=== PATIENT | female | born 1955 | race Caucasian/White ===

== ENCOUNTER 2018-04-17 13:39 | Emergency (ER) | END 2018-04-17 16:45 | disposition home or self-care (01) ==

== ENCOUNTER 2018-07-02 16:27 | Emergency (ER) | END 2018-07-02 18:33 | disposition home or self-care (01) ==

== ENCOUNTER 2018-10-08 14:46 | Emergency (ER) | payer OTHER ==
[~2018-10-08] VITALS: Wt 71.0 kg
[~2018-10-08 14:46] MED LIST: ACET325T33 PO; ACET500C5 PO; AMOX500C2 PO; CEPH-443 PO; IBUP-1561 PO; MED4DP PO; PROM6.2515 PO; SULF1TAB31 PO
[2018-10-08 14:51] VITALS: BP 149/71; PULSE 78; RESP 18
[2018-10-08] MEDS ORDERED: CEPH-443 PO (15:59)
[2018-10-08] MEDS ORDERED: ACET500C5 PO (15:59)
[2018-10-08] MEDS ORDERED: ACETAMINOPHEN 325 MG TAB PO ONE (16:00)
--- NOTE | 2018-10-08 16:04 | ERD ---
ER Documentation Chief Complaint Chief Complaint UPPER LEFT DENTAL PAIN X 8 DAYS HPI 63-year-old female presents with left lower molar dental pain for last 8 days. She denies any fevers, difficulty swallowing, difficult to breathing. Patient states that she is able to see a dentist. She has an additional complaint of some irritation of the right nipple after taking a shower and rubbing it earlier this week. She had a recent normal mammogram by report. ROS All systems reviewed and are negative except as per history of present illness. Medications Home Meds Active Scripts Acetaminophen* (Tylophen*) 500 Mg Capsule, 1 CAP PO Q6H PRN for PAIN AND OR ELEVATED TEMP, #20 CAP Prov:KANCHAN TSANG MD 10/08/18 Cephalexin* (Keflex*) 500 Mg Capsule, 500 MG PO QID for 10 Days, CAP Prov:KANCHAN TSANG MD 10/08/18 Ibuprofen* (Motrin*) 400 Mg Tab, 400 MG PO Q8, #15 TAB Prov:ABHIJIT MORAES MD 07/02/18 Promethazine Hcl* (Promethazine Hcl* Syrup) 6.25 Mg/5 Ml Syrup, 6.25 MG PO BID PRN for COUGH for 5 Days, #60 ML Prov:ABHIJIT MORAES MD 07/02/18 Amoxicillin* (Amoxicillin*) 500 Mg Cap, 500 MG PO TID for 7 Days, CAP Prov:ABHIJIT MORAES MD 07/02/18 Acetaminophen* (Tylophen*) 500 Mg Capsule, 1 CAP PO Q6H PRN for PAIN AND OR ELEVATED TEMP, #20 CAP Prov:HANNAH WOO PA-C 04/24/18 Methylprednisolone* (Medrol* DOSE PACK) 4 Mg/Dose-Pack Tab.ds.pk, 4 MG PO . DIRECTED for 5 Days, PACKET Prov:HANNAH WOO PA-C 04/24/18 Acetaminophen* (Tylenol*) 325 Mg Tablet, 2 TAB PO Q8 PRN for PAIN AND OR ELEVATED TEMP, #20 TAB Prov:ABHIJIT MORAES MD 04/17/18 Sulfamethoxazole/Trimethoprim* (Bactrim Ds* Tablet) 1 Each Tablet, 1 TAB PO BID, #14 TAB Prov:ABHIJIT MORAES MD 04/17/18 Cephalexin* (Keflex*) 500 Mg Capsule, 500 MG PO BID for 7 Days, CAP Prov:ABHIJIT MORAES MD 04/17/18 Allergies Allergies: Coded Allergies: No Known Allergy (Unverified , 07/02/18) PMhx/Soc Hx Neurological Disorder: No Hx Respiratory Disorders: No Hx Cardiac Disorders: Yes (HTN,HYPERCHOLESTEROLEMIA) Hx Psychiatric Problems: No Hx Miscellaneous Medical Probl: Yes (DM) Hx Alcohol Use: No Hx Substance Use: No Hx Tobacco Use: No Smoking Status: Never smoker FmHx Family History: No diabetes, No coronary disease, No other Physical Exam Vitals Vital Signs Date Temp Pulse Resp B/P (MAP) Pulse Ox O2 O2 Flow FiO2 Time Delivery Rate 10/08/18 98.1 78 18 149/71 99 14:51 (97) Physical Exam Const: No acute distress Head: Atraumatic Eyes: Normal Conjunctiva ENT: Normal External Ears, Nose and Mouth. Poor dentition. Tender left lower anterior molar with slight surrounding redness at the base. No facial swelling or induration or erythema. Airway patent. Neck: Full range of motion. No meningismus. Resp: Clear to auscultation bilaterally. Breasts exam with broom machine operator shows no masses, erythema essentially normal exam. Cardio: Regular rate and rhythm, no murmurs Abd: Soft, non tender, non distended. Normal bowel sounds Skin: No petechiae or rashes Back: No midline or flank tenderness Ext: No cyanosis, or edema Neur: Awake and alert Psych: Normal Mood and Affect Results 24 hrs Current Medications Medications Dose Sig/Ted Start Time Status Last (Trade) Ordered Route PRN Stop Time Admin Dose Reason Admin 650 mg ONCE ONCE 10/08/18 Acetaminophen PO 16:00 (Tylenol 10/08/18 16:01 Tab) Procedures/MDM Patient presents with left lower dental pain without evidence of abscess, facial cellulitis, airway obstruction. She will treated with Keflex, Tylenol, recommendations for dental follow-up and return precautions. Patient is right wrist pain with normal exam as well. Given that she had normal recent recent mammogram she is advised to follow-up with primary doctor return to ER for new or worsening symptoms. The patient was stable with no new complaints during the ER course. Clinically, there is no current evidence to suggest meningitis, sepsis, acute abdomen, pneumonia, stroke, acute coronary syndrome, pulmonary embolism, aortic dissection or any other emergent condition appearing to require further evaluation or hospitalization. Patient counseled regarding my diagnostic impression and care plan. Prior to discharge all questions answered. Pt agrees with treatment plan and understands strict return precautions. Pt is instructed to follow up with primary care provider within 24-48 hours. Precautionary instructions provided including instructions to return to the ER if not improving or for any worsening or changing symptoms or concerns. Departure Diagnosis: Primary Impression: Toothache Condition: Stable Patient Instructions: Dental Pain Referrals: DOCTOR,NOT ON STAFF (PCP) [facility] ([facility] walk in clinic) Additional Instructions: Va al bhakta doctor/ dentista para mas evaluacon en el proximo semana. posiblemente necesita autorizado de bhakta doctor primario para specialista. Regresa para fiebre, o mas o nueva simptomas. KANCHAN TSANG MD Oct 08, 2018 16:04
== END 2018-10-08 16:15 | disposition home or self-care (01) ==
LOC: FTE 14:46
DX: K08.89 Other specified disorders of teeth and supporting structures (principal); I10 Essential (primary) hypertension; E11.9 Type 2 diabetes mellitus without complications
CPT/HCPCS: Z7502; Z7610; 99283

== ENCOUNTER 2018-11-25 16:35 | Emergency (ER) | payer OTHER ==
[~2018-11-25] VITALS: Ht 154.9 cm; Wt 70.9 kg
[2018-11-25 16:45] VITALS: Ht 154.9 cm; Wt 70.9 kg
[2018-11-25] MEDS ORDERED: CEPH500C PO (19:22)
[2018-11-25] MEDS ORDERED: IBUP-1542 PO (19:22)
--- NOTE | 2018-11-25 19:23 | ERD ---
ER Documentation Chief Complaint Chief Complaint pt bib self with c/o right breast pain since Sep HPI 63-year-old female presents with pain in the right breast since September. She did have a mammogram which she stated is normal a few months ago. She denies bleeding or discharge. She denies any history of trauma. The pain is in the left side of the nipple on the right breast. ROS All systems reviewed and are negative except as per history of present illness. Medications Home Meds Active Scripts Cephalexin* (Cephalexin*) 500 Mg Capsule, 500 MG PO Q6 for 7 Days, #28 CAP Prov:KANCHAN TSANG MD 11/25/18 Ibuprofen* (Motrin*) 600 Mg Tab, 600 MG PO Q6, #20 TAB Prov:KANCHAN TSANG MD 11/25/18 Acetaminophen* (Tylophen*) 500 Mg Capsule, 1 CAP PO Q6H PRN for PAIN AND OR ELEVATED TEMP, #20 CAP Prov:KANCHAN TSANG MD 10/08/18 Cephalexin* (Keflex*) 500 Mg Capsule, 500 MG PO QID for 10 Days, CAP Prov:KANCHAN TSANG MD 10/08/18 Ibuprofen* (Motrin*) 400 Mg Tab, 400 MG PO Q8, #15 TAB Prov:ABHIJIT MORAES MD 07/02/18 Promethazine Hcl* (Promethazine Hcl* Syrup) 6.25 Mg/5 Ml Syrup, 6.25 MG PO BID PRN for COUGH for 5 Days, #60 ML Prov:ABHIJIT MORAES MD 07/02/18 Amoxicillin* (Amoxicillin*) 500 Mg Cap, 500 MG PO TID for 7 Days, CAP Prov:ABHIJIT MORAES MD 07/02/18 Acetaminophen* (Tylophen*) 500 Mg Capsule, 1 CAP PO Q6H PRN for PAIN AND OR ELEVATED TEMP, #20 CAP Prov:HANNAH WOO PA-C 04/24/18 Methylprednisolone* (Medrol* DOSE PACK) 4 Mg/Dose-Pack Tab.ds.pk, 4 MG PO . DIRECTED for 5 Days, PACKET Prov:HANNAH WOO PA-C 04/24/18 Acetaminophen* (Tylenol*) 325 Mg Tablet, 2 TAB PO Q8 PRN for PAIN AND OR ELEVATED TEMP, #20 TAB Prov:ABHIJIT MORAES MD 04/17/18 Sulfamethoxazole/Trimethoprim* (Bactrim Ds* Tablet) 1 Each Tablet, 1 TAB PO BID, #14 TAB Prov:ABHIJIT MORAES MD 04/17/18 Cephalexin* (Keflex*) 500 Mg Capsule, 500 MG PO BID for 7 Days, CAP Prov:ABHIJIT MORAES MD 04/17/18 Allergies Allergies: Coded Allergies: No Known Allergy (Unverified , 07/02/18) PMhx/Soc History of Surgery: No Anesthesia Reaction: No Hx Neurological Disorder: No Hx Respiratory Disorders: No Hx Cardiac Disorders: Yes (HTN,HYPERCHOLESTEROLEMIA) Hx Psychiatric Problems: No Hx Miscellaneous Medical Probl: Yes (DM) Hx Alcohol Use: No Hx Substance Use: No Hx Tobacco Use: No Smoking Status: Never smoker Physical Exam Vitals Vital Signs Date Temp Pulse Resp B/P (MAP) Pulse Ox O2 O2 Flow FiO2 Time Delivery Rate 11/25/18 97.9 85 16 161/90 98 16:45 (113) Physical Exam Const: No acute distress Head: Atraumatic Eyes: Normal Conjunctiva ENT: Normal External Ears, Nose and Mouth. Neck: Full range of motion. No meningismus. Resp: Clear to auscultation bilaterally breast exam with grain scooper shows tenderness at 3:00 on the right areole a without dominant masses, appreciation of fluctuance, erythema. No discharge. Right breast limited ultrasound shows no evidence of abscess or masses. Presents with breast pain of uncertain etiology. May be a glandular obstruction or mild mastitis. Normal mammogram 2 months ago is reassuring. Will treat em pirically with ibuprofen, Keflex, recommendations for primary care follow-up and return precautions for fevers, redness, new worsening symptoms . The patient was stable with no new complaints during the ER course. Clinically, there is no current evidence to suggest meningitis, sepsis, acute abdomen, pneumonia, stroke, acute coronary syndrome, pulmonary embolism, aortic dissection or any other emergent condition appearing to require further evaluation or hospitalization. Patient counseled regarding my diagnostic impression and care plan. Prior to discharge all questions answered. Pt agrees with treatment plan and understands strict return precautions. Pt is instructed to follow up with primary care provider within 24-48 hours. Precautionary instructions provided including instructions to return to the ER if not improving or for any worsening or changing symptoms or concerns. Departure Diagnosis: Primary Impression: Breast pain Condition: Stable Patient Instructions: Breast Self-Exam (BSE) Additional Instructions: Examines normal hoy. no puede uzma nada en ultrasonido. Cheque otro vez con bhakta doctor primario en el proximo gloria or regresa para mas o nueva simptomas. KANCHAN TSANG MD Nov 25, 2018 19:23
[2018-11-25] MEDS ORDERED: TRAM50TA2 PO (19:37)
[2018-11-25 19:44] VITALS: BP 190/86; PULSE 73; RESP 18
== END 2018-11-25 19:48 | disposition home or self-care (01) ==
LOC: FTE 16:35
DX: N64.4 Mastodynia (principal); I10 Essential (primary) hypertension; E11.9 Type 2 diabetes mellitus without complications
CPT/HCPCS: 76642; Z7502